=== PATIENT | male | born 1990 | race African-American/Black ===

== ENCOUNTER 2017-09-16 01:13 | Emergency (ER) | payer BC ==
[~2017-09-16] VITALS: Ht 182.9 cm; Wt 77.1 kg
--- NOTE | 2017-09-16 01:30 | NUR ---
PT AMBULATORY TO ER BED 6. PT BIB SELF C/O BURNING WHEN HE URINATES X 2 WEEKS. PT PLACED IN GOWN. URINE SPECIMEN OBTAINED AND SENT TO THE LAB. RESP EVEN UNLABORED/NAD NOTED/SKIN WARM AND DRY/DENIES N-V-D/AOX4. AWAITING MD CARPENTER.
--- NOTE | 2017-09-16 01:35 | NUR ---
AT BEDSIDE FOR EVAL.
--- NOTE | 2017-09-16 01:40 | NUR ---
XRAY CALLED TO PAGE ULTRASOUND PER MD ORDERS.
[2017-09-16 01:52] LABS: APPEARANCE,URINE CLEAR (CLEAR); BILIRUBIN,URINE NEGATIVE (NEGATIVE); BLOOD, URINE NEGATIVE Ery/uL (NEGATIVE); COLOR,URINE YELLOW (YELLOW); KETONES,URINE NEGATIVE (NEGATIVE); LEUKOCYTE ESTERASE ,URINE NEGATIVE (NEGATIVE); NITRITE, URINE NEGATIVE (NEGATIVE); PH,URINE 7.5 (5.0-8.0); PROTEIN,URINE NEGATIVE (NEGATIVE); UGLUCOSE NEGATIVE (NEGATIVE); UROBILINOGEN,URINE 0.2 EU/dL (0.2)
--- NOTE | 2017-09-16 02:30 | NUR ---
ULTRASOUND AT BEDSIDE.
--- NOTE | 2017-09-16 03:12 | NUR ---
Patient discharged to home in stable condition. Written and verbal after care instructions given. Patient verbalizes understanding of instruction. Pt ambulatory with a steady gait.
[2017-09-16 03:13] VITALS: BP 119/64
== END 2017-09-16 03:13 | disposition home or self-care (01) ==
LOC: ER 01:14
DX: Z00.8 Encounter for other general examination (principal); R30.0 Dysuria; R10.30 Lower abdominal pain, unspecified; Z88.8 Allergy status to other drugs, medicaments and biological substances
CPT/HCPCS: 76870; 81001; 99285; A4606; 81000-TC; Z7610

== ENCOUNTER 2017-10-10 23:42 | Emergency (ER) | payer BC ==
[~2017-10-10] VITALS: Ht 193 cm; Wt 65.8 kg
[2017-10-10 23:54] VITALS: BP 132/73
== END 2017-10-11 00:29 | disposition home or self-care (01) ==
LOC: ER 23:46
DX: R07.9 Chest pain, unspecified (principal); R20.0 Anesthesia of skin; F41.9 Anxiety disorder, unspecified; Z88.8 Allergy status to other drugs, medicaments and biological substances
CPT/HCPCS: 71010; 93005; 99284; A4606; Z7610